=== PATIENT | female | born 1955 | race Caucasian/White ===

== ENCOUNTER 2019-01-04 16:21 | Emergency (ER) | payer OTHER ==
[~2019-01-04] VITALS: Ht 165.1 cm; Wt 63.5 kg
[~2019-01-04 16:21] MED LIST: ASPI81CH39; ASPI81CH43; ATEN-60; ATOR80TA; ESTR2TAB3; IPRAAER5; LISI10TA6; NICO4GUM; [UNRECOGNIZED DRUG - CODE]
[2019-01-04 17:30] LABS: Basophils # (auto) 0.1 uL; Basophils % (auto) 0.5 % (0.0-2.0); Eosinophils # (auto) 0.2 uL; Eosinophils % (auto) 1.7 % (0.0-7.0); Hematocrit 44.3 % (36.0-46.0); Hemoglobin 14.7 g/dL (12.2-16.2); Lymphocytes # (auto) 1.2 uL; Mean Corpuscular Hemoglobin 30.2 pg (28.0-32.0); Mean Corpuscular Hgb Conc. 33.1 g/dL (32.0-36.0); Mean Corpuscular Volume 91.4 fL (80.0-100.0); Monocytes # (auto) 0.9 uL; Monocytes % (auto) 8.1 % (0.0-12.0); Neutrophils # (auto) 8.5 uL; Neutrophils % (auto) 78.7 % (37.0-80.0); Platelet Count (auto) 263 10^3/uL (140-450); Red Blood Cells 4.85 10^6/uL (4.0-5.20); Red Cell Distribution Width 13.7 % (11.8-14.3); White Blood Cell 10.8 10^3/uL (4.4-10.8)
[2019-01-04 17:36] LABS: Chloride 104 mmol/L (98-107); Potassium 4.3 mmol/L (3.5-5.1); Sodium 142 mmol/L (136-145)
[2019-01-04 17:38] LABS: Albumin 3.8 g/dL (3.4-5.0); Anion Gap 7 (5-15); Blood Urea Nitrogen 17 mg/dL (7-18); Calcium 9.2 mg/dL (8.5-10.1); Carbon Dioxide 31 mmol/L (21-32); Glucose 102 mg/dL (74-106); Magnesium 2.4 mg/dL (1.6-2.6)
[2019-01-04 17:41] LABS: Alanine Aminotransferase 28 U/L (13-56); Aspartate Aminotransferase 21 U/L (15-37); BUN/Creatinine Ratio 22.4; GFR African American 98 mL/min; GFR Non-African American 81 mL/min
[2019-01-04 17:44] LABS: Alkaline Phosphatase 143 U/L (45-117); Bilirubin, Total 0.3 mg/dL (0.2-1.0); Total Protein 7.2 g/dL (6.4-8.2)
[2019-01-04] MEDS ORDERED: LORazepam 0.5 MG TAB PO ONE (20:30)
[2019-01-04] MEDS ORDERED: IPRATROPIUM BROM 0.5 MG/2.5ML INH SOL NEB ONE (20:30)
[2019-01-04] MEDS ORDERED: ALBUTEROL SULF 2.5 MG/0.5ML(0.5%) NEB SOLN NEB ONE (20:30)
[2019-01-04] MEDS ORDERED: methylPREDNISolone SOD SUCC 125 MG/2 ML VL IV ONE (20:30)
[2019-01-04 22:16] VITALS: BP 142/70
== END 2019-01-04 22:06 | disposition home or self-care (01) ==
LOC: ER 16:21 → EDBD 16:21 → ER 22:06
DX: J44.1 Chronic obstructive pulmonary disease with (acute) exacerbation (principal); Z90.710 Acquired absence of both cervix and uterus; Z87.891 Personal history of nicotine dependence
CPT/HCPCS: 36415; 71045; 80053; 83735; 84484; 85025; 93005; 94640; 96374; 99284; J2930; J7611; J7644